=== PATIENT | female | born 1995 | race Caucasian/White ===

== ENCOUNTER 2017-03-31 15:30 | Emergency (ER) | payer SELFPAY ==
[2017-03-31 15:37] VITALS: BP 129/66
--- NOTE | 2017-03-31 16:35 | UC ---
Knee Pain HPI - HPI Summary HPI Summary: Fell onto concrete floor directly onto R kneecap about 2 months ago at work. Had to go home from pain that day, and was able to keep working only with continued high-dose ibuprofen for about a month. Denies sense of instability. Feels like things were improving until the last week or so when knee has been getting more sore and swollen by the end of the day. Denies new injury or prior surgery/injury. - History of Current Complaint Chief Complaint: UCLowerExtremity Stated Complaint: KNEE INJURY Time Seen by Provider: 03/31/17 16:18 Hx Obtained From: Patient Hx Last Menstrual Period: 1 WEEK AGO ?: No Onset/Duration: Sudden Onset, Still Present Severity Initially: Severe Severity Currently: Moderate Character: Dull, Aching, Stiffness Aggravating Factor(s): Movement Alleviating Factor(s): Rest Associated Signs And Symptoms: Positive: Swelling Able to Bear Weight: Yes - Allergies/Home Medications Allergies/Adverse Reactions: Allergies Allergy/AdvReac Type Severity Reaction Status Date / Time Latex Allergy Severe ITCHING, Verified 03/31/17 15:37 BURNING Diphenhydramine Allergy See Comment Verified 03/31/17 15:37 Pseudoephedrine Allergy Stomach Verified 03/31/17 15:37 Cramps CONTROL PILL Allergy Severe SINUS Uncoded 03/20/15 18:54 MIGRAINE Home Medications: Home Medications Ibuprofen TAB* [Advil TAB*] 400 mg PO PRN 03/31/17 [History] Multiple Vitamins W/ Minerals [Multivitamin Adults] 1 tab PO DAILY 03/31/17 [ History Confirmed 03/31/17] PMH/Surg Hx/FS Hx/Imm Hx Respiratory History: Asthma - Surgical History Surgical History: None - Family History Known Family History: Positive: Other - Maternal Grandmother positive for Breast Cancer - Social History Occupation: Employed Full-time Alcohol Use: Occasionally Substance Use Type: None Smoking Status (MU): Never Smoked Tobacco Review of Systems Constitutional: Negative Skin: Negative Eyes: Negative ENT: Negative Respiratory: Negative Cardiovascular: Negative Gastrointestinal: Negative Genitourinary: Negative Motor: Negative Neurovascular: Negative Musculoskeletal: Arthralgia - R knee Neurological: Negative Psychological: Negative All Other Systems Reviewed And Are Negative: Yes Physical Exam Triage Information Reviewed: Yes Appearance: Well-Appearing, No Pain Distress, Well-Nourished Vital Signs: Initial Vital Signs Temp 99.8 F 03/31/17 15:33 Pulse 100 03/31/17 15:33 Resp 16 03/31/17 15:33 BP 129/66 03/31/17 15:33 Pulse Ox 100 03/31/17 15:33 Vital Signs Reviewed: Yes Eye Exam: Normal Eyes: Positive: Conjunctiva Clear ENT Exam: Normal ENT: Positive: Normal ENT inspection, Hearing grossly normal, Pharynx normal, TMs normal Dental Exam: Normal Neck exam: Normal Neck: Positive: Supple, Nontender, No Lymphadenopathy Respiratory Exam: Normal Respiratory: Positive: Chest non-tender, Lungs clear, Normal breath sounds, No respiratory distress, No accessory muscle use Cardiovascular Exam: Normal Cardiovascular: Positive: RRR, No Murmur Musculoskeletal Exam: Other - very mild tenderness on upper portion of R knee Musculoskeletal: Positive: Strength Intact, ROM Intact Neurological Exam: Normal Neurological: Positive: Alert Psychological Exam: Normal Skin Exam: Normal Knee Pain Course/Dx - Differential Dx/Diagnosis Provider Diagnoses: R knee contusion. knee pain. elevated blood pressure due to pain Discharge - Discharge Plan Condition: Stable Disposition: HOME Patient Education Materials: Knee Pain (ED) Referrals: Jaquelin Santos MD [Medical Doctor] - 1 Week
--- NOTE | 2017-03-31 17:24 | RAD ---
Indication: RIGHT knee pain and swelling post fall onto kneecap 2 months ago. Comparison: None. Technique: RIGHT knee: AP, tunnel, lateral, sunrise views. REPORT AND IMPRESSION: Negative for effusion, fracture, or malalignment. Preserved joint spaces. Minimal anterior soft tissue swelling.
== END 2017-03-31 17:43 | disposition home or self-care (01) ==
LOC: UCEAST 15:30
DX: S80.01XA Contusion of right knee, initial encounter (principal); M25.561 Pain in right knee; W19.XXXA Unspecified fall, initial encounter; Y93.9 Activity, unspecified; Y92.9 Unspecified place or not applicable; Y99.9 Unspecified external cause status; R03.0 Elevated blood-pressure reading, without diagnosis of hypertension
CPT/HCPCS: 99211; G0463

== ENCOUNTER 2017-05-10 16:06 | Emergency (ER) | payer OTHER ==
[2017-05-10 16:26] VITALS: BP 94/62
--- NOTE | 2017-05-10 18:50 | UC ---
UC General HPI - HPI Summary HPI Summary: ABOUT A WEEK OF FATIGUE, BUENO, NECK FEELS SORE. THINKS HER THYROID IS SWOLLEN. THYROID PROBLEMS RUN IN THE FAMILY. HAS SOME CONSTIPATION AND FEELS COLD. SKIN IS DRY. - History of Current Complaint Chief Complaint: UCGeneralIllness Stated Complaint: NECK SWELLING Time Seen by Provider: 05/10/17 16:43 Hx Obtained From: Patient Hx Last Menstrual Period: 2 weeks ago Onset/Duration: Gradual Onset, Lasting Days, Still Present Timing: Constant Onset Severity: Moderate Current Severity: Moderate Pain Intensity: 3 Associated Signs & Symptoms: Positive: Headache, Other - FATIGUE - Allergy/Home Medications Allergies/Adverse Reactions: Allergies Allergy/AdvReac Type Severity Reaction Status Date / Time Latex Allergy Severe ITCHING, Verified 05/10/17 16:26 BURNING Diphenhydramine Allergy See Comment Verified 05/10/17 16:26 Pseudoephedrine Allergy Stomach Verified 05/10/17 16:26 Cramps CONTROL PILL Allergy Severe SINUS Uncoded 05/10/17 16:26 MIGRAINE PMH/Surg Hx/FS Hx/Imm Hx Respiratory History: Asthma - Surgical History Surgical History: None - Family History Known Family History: Positive: Other - Maternal Grandmother positive for Breast Cancer. "THYROID PROBLEMS" - Social History Alcohol Use: Occasionally Substance Use Type: None Smoking Status (MU): Never Smoked Tobacco Review of Systems Constitutional: Fatigue Skin: Other - DRY SKIN Respiratory: Negative Cardiovascular: Negative Gastrointestinal: Negative Neurological: Headache All Other Systems Reviewed And Are Negative: Yes Physical Exam Triage Information Reviewed: Yes Appearance: Well-Appearing, No Pain Distress, Well-Nourished Vital Signs: Initial Vital Signs Temp 98.0 F 05/10/17 16:21 Pulse 112 05/10/17 16:21 Resp 16 05/10/17 16:21 BP 94/62 05/10/17 16:21 Pulse Ox 100 05/10/17 16:21 Vital Signs Reviewed: Yes Eyes: Positive: Conjunctiva Clear ENT: Positive: Hearing grossly normal Neck: Positive: Supple, Nontender, No Lymphadenopathy, Other: - POSSIBLE FULLNESS TO THYROID BUT NO DISCRETE SWELLING OR NODULE Respiratory Exam: Normal Cardiovascular Exam: Normal Abdomen Description: Positive: Soft Musculoskeletal: Positive: No Edema Neurological: Positive: Alert Psychological: Positive: Age Appropriate Behavior Skin: Negative: rashes Course/Dx - Differential Dx - Multi-Symptom Provider Diagnoses: FATIGUE Discharge - Discharge Plan Condition: Stable Disposition: HOME Patient Education Materials: Fatigue (ED) Referrals: Debra Pulliam MD [Primary Care Provider] - 1 Week Additional Instructions: LABS DRAWN TODAY INCLUDE THYROID TEST, BLOOD COUNT AND METABOLIC PANEL. FOLLOW- UP WITH YOUR PCP WITHIN A WEEK FOR FURTHER EVALUATION OF YOUR SYMPTOMS.
[2017-05-10 19:06] LABS: Hematocrit 40 % (35-47); Hemoglobin 13.5 g/dl (12.0-16.0); Mean Corpuscular HGB Conc 34 g/dl (31-36); Mean Corpuscular Hemoglobin 32 pg (27-31); Mean Corpuscular Volume 94 fL (80-97); Mean Platelet Volume 9 um3 (7.4-10.4); Red Blood Count 4.27 10^6/ul (4.0-5.4); Red Cell Distribution Width 13 % (10.5-15); White Blood Count 7.9 10^3/ul (3.5-10.8)
[2017-05-10 19:30] LABS: TSH (Thyroid Stimulating Horm) 1.02 mcIU/mL (0.34-5.60)
[2017-05-10 19:51] LABS: Albumin 4.7 g/dL (3.2-5.2); BUN/Creatinine Ratio 18.9 (8-20); Calcium 9.6 mg/dL (8.6-10.3); EGFR African American 82.6 (>60); EGFR Non-African American 64.2 (>60); Globulin 2.5 g/dL (2-4); Potassium 4.4 mmol/L (3.5-5.0); Total Bilirubin 0.3 mg/dL (0.2-1.0); Total Protein 7.2 g/dL (6.4-8.9)
--- NOTE | 2017-05-11 08:34 | UC ---
Progress - Progress Note Progress Note: notify pt that her blood sugar was low I suggest she eat 6 small meals/day until seen by here
== END 2017-05-10 17:18 | disposition home or self-care (01) ==
LOC: UCEAST 16:06
DX: R53.83 Other fatigue (principal); E16.2 Hypoglycemia, unspecified; R51 Headache; K59.00 Constipation, unspecified; Z83.49 Family history of other endocrine, nutritional and metabolic diseases
CPT/HCPCS: 36415; 80053; 84443; 85025; 93005; 99211; G0463

== ENCOUNTER 2018-01-10 19:28 | Emergency (ER) | payer OTHER ==
[2018-01-10 20:00] VITALS: BP 110/73
--- NOTE | 2018-01-10 20:25 | UC ---
Lilia Mike Gabriel, scribed for Heather Keller MD on 01/10/18 at 2008 . Throat Pain/Nasal [place] HPI - HPI Summary HPI Summary: This patient is a 22 year old F presenting to [facility] [place] with a chief complaint of a sore throat that began this morning. The patient rates the pain 4/10 in severity. Symptoms alleviated by numbing spray. Patient reports chills and right sided ear pain x 24 hours. No analgesia taken other than spray. Patient denies fever. Pt states she is very susceptible to strep throat. No sick contacts. Stay feels pressure in right ear no drainage. LNMP was a week ago and denies any chance of being . Patients medication reviewed this visit. - History of Current Complaint Chief Complaint: UCRespiratory Stated Complaint: SORE THROAT Time Seen by Provider: 01/10/18 20:03 Hx Obtained From: Patient Hx Last Menstrual Period: 01/03/18 Onset/Duration: Lasting Hours - this morning, Still Present Severity: Moderate Pain Intensity: 4 Pain Scale Used: 0-10 Numeric Cough: Nonproductive Associated Signs & Symptoms: Positive: Other - ear pain and chills. Negative: Fever - Epiglottits Risk Factors Epiglottis Risk Factors: Negative - Allergies/Home Medications Allergies/Adverse Reactions: Allergies Allergy/AdvReac Type Severity Reaction Status Date / Time latex Allergy Severe Itching Verified 01/10/18 20:32 diphenhydramine Allergy See Comment Verified 01/10/18 20:32 pseudoephedrine Allergy Stomach Verified 01/10/18 20:32 Cramps control Allergy Headache Uncoded 01/10/18 20:32 PMH/Surg Hx/FS Hx/Imm Hx Previously Healthy: Yes Respiratory History: Asthma Other History Of: Negative For: Hepatitis C - Surgical History Surgical History: None Surgery Procedure, Year, and Place: laproscopy July 2017 - Family History Known Family History: Positive: Other - Maternal Grandmother positive for Breast Cancer. "THYROID PROBLEMS" Negative: Respiratory Disease, Seizure Disorder - Social History Occupation: Employed Full-time - catering Lives: With Family Alcohol Use: Occasionally Substance Use Type: None Smoking Status (MU): Never Smoked Tobacco Review of Systems Constitutional: Chills Skin: Negative Eyes: Negative ENT: Sore Throat, Ear Ache - right side Respiratory: Negative Cardiovascular: Negative Gastrointestinal: Negative Genitourinary: Negative Motor: Negative Neurovascular: Negative Musculoskeletal: Negative Neurological: Negative All Other Systems Reviewed And Are Negative: Yes Physical Exam Triage Information Reviewed: Yes Appearance: Well-Appearing, No Pain Distress, Well-Nourished Vital Signs: Initial Vital Signs Temp 98.3 F 01/10/18 19:54 Pulse 96 01/10/18 19:54 Resp 16 01/10/18 19:54 BP 110/73 01/10/18 19:54 Pulse Ox 100 01/10/18 19:54 Vital Signs Reviewed: Yes Eye Exam: Normal Eyes: Positive: Conjunctiva Clear ENT: Positive: Other - Right TM ++ fluid, erythema left TM wnl turbinates inflammed + PND + erythema no exudate uvula midline Dental Exam: Normal Neck exam: Normal Neck: Positive: Supple, Nontender. Negative: No Lymphadenopathy - + submandibular LA R>L Respiratory Exam: Normal Respiratory: Positive: Chest non-tender, Lungs clear, Normal breath sounds, No respiratory distress, No accessory muscle use Cardiovascular Exam: Normal Cardiovascular: Positive: RRR, No Murmur Abdominal Exam: Normal Abdomen Description: Positive: Nontender, No Organomegaly, Soft Bowel Sounds: Positive: Present Musculoskeletal Exam: Normal Musculoskeletal: Positive: Strength Intact Neurological Exam: Normal Neurological: Positive: Alert Psychological Exam: Normal Skin Exam: Normal Throat Pain/Nasal Course/Dx - Course Assessment/Plan: Pt with sore throat, progressive ear pain right side x 24 hours. No fever chills. No drooling. Pt with right OM on exam. RX amox. motrin/apap. flonase. return precaution. secretion precaution - Differential Dx/Diagnosis Provider Diagnoses: right OM. sinusitis Discharge - Sign-Out/Discharge Documenting (check all that apply): Discharge/Admit/Transfer - Discharge Plan Condition: Stable Disposition: HOME Prescriptions: Amoxicillin PO (*) [Amoxicillin 875 MG (*)] 875 mg PO BID #20 tab Fluticasone NASAL SPRAY 50MCG* [Flonase NASAL SPRAY 50MCG*] 2 spray BOTH NARES DAILY #1 btl Patient Education Materials: Pharyngitis (ED), Ear Infection (ED) Referrals: Debra Pulliam MD [Primary Care Provider] - Additional Instructions: - Okay to alternate ibuprofen (Advil, Motrin) and Tylenol every 3 hours for pain. Take with food. Do NOT take for more than 4-5 days - Okay to gargle and spit every 4 hours as needed for pain - Stay well hydrated - frequent sips of cold fluids will be soothing to your throat (popsicles, jello, ice cream, ice water). Avoid excess caffeine until your symptoms have resolved. - Do not share eating, drinking utensils. Throat infections are spread by oral secretions - do not share eating or drinking utensils until you symptoms are resolved. Clean items that may get your secretions such as cell phones, ipads, computer mouse, television remotes. Once you have been on antibiotics for 2 days , change your toothbrush and your pillowcase - use nasal spray as instructed - Take antibiotics as prescribed until gone - Contact your doctor to arrange a follow-up appointment as needed - Billing Disposition and Condition Condition: STABLE Disposition: HOME The documentation as recorded by the Lilia allen Gabriel accurately reflects the service I personally performed and the decisions made by me, Heather Keller MD.
== END 2018-01-10 20:30 | disposition home or self-care (01) ==
LOC: UCEAST 19:28
DX: H66.91 Otitis media, unspecified, right ear (principal); J32.9 Chronic sinusitis, unspecified; J45.909 Unspecified asthma, uncomplicated; Z88.8 Allergy status to other drugs, medicaments and biological substances; Z91.040 Latex allergy status
CPT/HCPCS: 87651; 99212; G0463